=== PATIENT | female | born 1940 | race Caucasian/White ===

== ENCOUNTER 2017-12-07 10:45 | Emergency (ER) | payer MEDICARE, OTHER | END 2017-12-07 13:20 | disposition home or self-care (01) | LOC: M ED 10:45 | DX: S40.011A Contusion of right shoulder, initial encounter (principal); S60.022A Contusion of left index finger without damage to nail, initial encounter; S63.91XA Sprain of unspecified part of right wrist and hand, initial encounter; S20.229A Contusion of unspecified back wall of thorax, initial encounter; S09.90XA Unspecified injury of head, initial encounter; W10.9XXA Fall (on) (from) unspecified stairs and steps, initial encounter; Y92.009 Unspecified place in unspecified non-institutional (private) residence as the place of occurrence of the external cause; E11.9 Type 2 diabetes mellitus without complications; I10 Essential (primary) hypertension; F03.90 Unspecified dementia, unspecified severity, without behavioral disturbance, psychotic disturbance, mood disturbance, and anxiety; M81.0 Age-related osteoporosis without current pathological fracture; Z88.8 Allergy status to other drugs, medicaments and biological substances; Z79.82 Long term (current) use of aspirin; Z79.899 Other long term (current) drug therapy; Z79.84 Long term (current) use of oral hypoglycemic drugs | CPT/HCPCS: 72110 ==